=== PATIENT | female | born 1930 | race Caucasian/White ===

== ENCOUNTER 2019-03-11 10:53 | Emergency (ER) | payer MEDICARE, BC ==
--- OUTSIDE RECORDS SUMMARY | 2019-03-11 11:05 | XMS REPORT | Continuity of Care Document ---
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 Payers Date Identification Numbers Payment Provider Subscriber Effective: Policy Number: [id number] Medicare Amanda Hager 1995 PayID: [id number] [address] [place] [address] Effective: 2016 Policy Number: [facility] Amanda Hager [id number] PayID: [id number] [address] [address] [place] [address] Problems Active Problems Provider Date Localized, primary osteoarthritis Jonny Romero MD Onset: 03/10/2019 Knee pain Jonny Romero MD Onset: 03/07/2019 Family History Date Family Member(s) Observation Comments General Hypercholesterolemia General Hypertension General Diabetes Social History Type Date Description Comments Sex Unknown Tobacco Use Start: Unknown Patient has never smoked Smoking Status Reviewed: 03/07/19 Patient has never smoked Allergies, Adverse Reactions, Alerts Active Allergies Reaction Severity Comments Date Aleve Moderate 03/07/2019 Advil Moderate 03/07/2019 Sulfacetamide Moderate 03/07/2019 Bactrim Moderate 03/07/2019 Medications Active Medications SIG Qnty Indications Ordering Provider Date Duloxetine HCL on tab PO every Jonny Romero MD 03/09/[address] Mccarthy Amiodarone HCL 200 mg daily Unknown 200mg Tablets Furosemide 1 tab every Unknown 80mg Tablets Thursday, Thursday, Thursday Vital Signs Date Vital Result Comment 03/07/2019 10:34am Height 62 inches 5'2" Weight 126.00 lb Heart Rate 72 /min BP Systolic 110 mmHg BP Diastolic 68 mmHg BMI (Body Mass Index) 23.0 kg/m2 Plan of Treatment 03/07/2019 - Jonny Romero, MDM25.561 Pain in right kneeNew Xrays:Kneeright 4+ VWS , Ordered: 03/07/19Ne Therapy:Physical TherapyComments:Right knee pain for quite some time. She has a diagnosis of osteoarthritis. Xrays done 1 to 2 years ago, not available to review. Has cortisone injection twice > 1 year ago. Had viscosupplementationin Aug 2018 and it lasted 2 months. Has not done any physical therapy . Xrays of right knee today: moderate to severe osteoarthritis. Her right knee pain is likely secondary to right knee mild osteoarthritis flare . Natural History discussed with patient in detail. We discussed treatment options and alternatives including corticosteroid injection / viscosupplementation and PT . 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 Ice 15 min at a time, 3 to 4 times/day. - Activity: Staying active is important . Incorporate exercise .Pain free activities as tolerated. Avoid activity that worsen your pain . - Plan to start Physical therapy- Weight loss discussed( Diet + Exercise better than either alone)) Patient will follow up later this week for a corticosteroid injection. Patient indicates that all questions have been satisfactorily addressed and agrees to proceed accordingly.Patient understands and agree with plan. Patient indicates that all questions have been satisfactorily addressed. Patient understands and agrees with plan.M25.561 Pain in right kneeNew Xrays:Kneeright 4+ VWS, Ordered: 03/07/19Ne Therapy:Physical TherapyComments:Right knee pain for quite some time. She has a diagnosis of osteoarthritis. Xrays done 1 to 2 years ago, not available to review. Has cortisone injection twice > 1 year ago. Had viscosupplementationin Aug 2018 and it lasted 2 months. Has not done any physical therapy . Xrays of right knee today: moderate to severe osteoarthritis. Her right knee pain is likely secondary to right knee mild osteoarthritis flare . Natural History discussed with patient in detail. We discussed treatment options and alternatives including corticosteroid injection / viscosupplementation and PT . Plan :- Pain control: Tylenol as needed for [facility] pain control . Ice 15 min at a time, 3 to 4 times/day. - Activity: Staying active is important . Incorporate exercise .Pain free activities as tolerated. Avoid activity that worsen your pain . - Plan to start Physical therapy- Weight loss discussed( Diet + Exercise better than either alone)) Patient will follow up later this week for a corticosteroid injection. Patient indicates that all questions have been satisfactorily addressed and agrees to proceed accordingly.Patient understands and agree with plan. Patient indicates that all questions have been satisfactorily addressed. Patient understands and agrees with plan.
--- OUTSIDE RECORDS SUMMARY | 2019-03-11 11:05 | XMS REPORT | Continuity of Care Document ---
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 Vicky Santana MD, PHD Primary Care Physician Unavailable Payers Date Identification Numbers Payment Provider Subscriber Policy Number: [id number] Medicare Amanda Schaeferamado PayID: [id number] [address] [place] [address] Policy Number: [id number] [facility] Amanda Schaeferamado PayID: [id number] [address] [address] [place] [address] Problems Active Problems Provider Date Localized, primary osteoarthritis Vicky Santana MD, PHD Onset: 03/02/2019 Conductive hearing loss, bilateral Vicky Santana MD, PHD Onset: 03/02/2019 Atelectasis Vicky Santana MD, PHD Onset: 03/02/2019 Heart failure, unspecified Vicky Santana MD, PHD Onset: 03/02/2019 Polyneuropathy Vicky Satnana MD, PHD Onset: 03/02/2019 Chronic pain Vicky Santana MD, PHD Onset: 03/02/2019 Heart valve replacement Vicky Santana MD, PHD Onset: 03/02/2019 Social History Type Date Description Comments Sex Unknown Lives With Daughter Diet Patient follows no dietary restrictions ADL's/IADL's Independent with all IADL's ADL's/IADL's Independent with all ADL's Tobacco Use Start: Unknown Never Smoked Cigarettes Smoking Status Reviewed: 03/02/19 Never Smoked Cigarettes ETOH Use Denies alcohol use Tobacco Use Start: Unknown Patient denies history of smoking Recreational Drug Use Denies Drug Use Allergies, Adverse Reactions, Alerts Active Allergies Reaction Severity Comments Date Aleve 03/02/2019 Co-Advil 03/02/2019 Naproxen 03/02/2019 Sulfa Drugs 03/02/2019 Inactive Allergies NKDA 03/02/2019 Medications Active Medications SIG Qnty Indications Ordering Date Provider Aspirin 81 1 by mouth every day Unknown 81mg Tablets DR MENON Vitamin B6 1 tab by mouth Unknown 100mg Tablets Vitamin D-3 1 by mouth every day Unknown 1000Unit Capsules Cyanocobalamin 3000mcg (3ml) Unknown intramuscular 1000mcg/ML Solution injection monthly Vitamin C 1 by mouth every day Unknown 500mg Capsules Dulcolax Stool prn Unknown Softener 100mg Capsules Folic Acid 1 tabl by mouth Unknown 800mcg every day Tablets Calcium + D 1 tab in morning and Unknown at night [id number] Chewtabs Omeprazole 1 by mouth every day Unknown 20mg or as needed Capsules Latanoprost 1 drop each eye at Unknown 0.005% night Solution Metoprolol Succinate 1 by mouth every day 90tabs Esther, ER MD Vicky, 25mg Tablets ER 24HR PHD Atorvastatin Calcium 1 by mouth every day Unknown 10mg Tablets Ibandronate Sodium take one tablet Unknown every month in am 150mg Tablets with 8 oz glass of water on empty stomach. remain upright for at least 30 minutes Brimonidine Tartrate one drop left eye Unknown twice daily. 0.15% Solution Gabapentin 1 tab in A.M. and 1 Unknown 300mg tab hs Capsules Klor-Con M10 1 by mouth every day Unknown 10Meq Tablets ER Furosemide 1 by mouth every Unknown 80mg Tablets Thursday, Thursday, and Thursday Amiodarone HCL 1 by mouth every day Unknown 200mg Tablets Duloxetine HCL 1 by mouth every Unknown 30mg a.m. and hs Caps DR Mccarthy Vital Signs Date Vital Result Comment 03/02/2019 9:36am BP Systolic 132 mmHg BP Diastolic 82 mmHg Body Temperature 98.2 F Heart Rate 71 /min Respiratory Rate 18 /min Height 66 inches 5'6" Weight 176.00 lb BMI (Body Mass Index) 28.4 kg/m2 BSA (Body Surface Area) 1.89 m2 [place] body weight in kilograms 59 kg O2 % BldC Oximetry 94 % Plan of Treatment 03/02/2019 - Vicky Santana MD, PHDZ95.2 Presence of prosthetic heart valveComments:Has a pig zkqryC64.9 Heart failure, unspecifiedFollow up:Please do records release for hospital records from [facility]28.29 Other chronic painG62.9 Polyneuropathy, dhtndscmmmkF25.11 AtelectasisComments:Take deep breaths - remind hourly during the day to get fluid out of lungs. Look for Arnica oil or Arnicare cream or Arnica with MSM cream from [facility] - Topical anti -inflammatory as effective but saferthan motrin - use on chest scars and arthritis as needed up to 4 times a day.H90.0 Conductive hearing loss, bilateralReferral:[facility], OweweeypvzsK45.0 Bilateral primary osteoarthritis of kneeReferral:Jonny Romero MD, Surgery,OrthopedicFollow up: Need records from Dr. Martin from [facility].
--- NOTE | 2019-03-11 12:22 | UC ---
Lower Extremity/Ankle HPI - HPI Summary HPI Summary: 88 y/o female presents to the urgent care c/o c/o red area on bottom of her feet that daughters are concerned for infection. States has a podiatry consult on . - History of Current Complaint Chief Complaint: UCLowerExtremity Stated Complaint: BI LAT FOOT CONCERN Time Seen by Provider: 03/11/19 12:20 Onset/Duration: Gradual Onset, Lasting Weeks - 4 weeks Pain Intensity: 8 - Allergies/Home Medications Allergies/Adverse Reactions: Allergies Allergy/AdvReac Type Severity Reaction Status Date / Time No Known Allergies Allergy Verified 03/11/19 11:35 PMH/Surg Hx/FS Hx/Imm Hx Previously Healthy: Yes Endocrine History: Dyslipidemia Other Endocrine History: Osteoporosis Cardiovascular History: Cardiac Disease, Hypertension GI/ History: Gastroesophageal Reflux Other GI/ History: Constipation - Surgical History Surgical History: Yes Surgery Procedure, Year, and Place: bilateral mastectomy. valve replacement. esophageal dilatation. eye. foot - Social History Alcohol Use: None Substance Use Type: None Smoking Status (MU): Former Smoker When Did the Patient Quit Smoking/Using Tobacco: 40 years ago Physical Exam Vital Signs: Initial Vital Signs Temp 98.9 F 03/11/19 11:36 Pulse 72 03/11/19 11:36 Resp 18 03/11/19 11:36 BP 150/70 03/11/19 11:36 Pulse Ox 96 03/11/19 11:36 Lower Extremity Course/Dx - Differential Dx/Diagnosis Differential Diagnosis/HQI/PQRI: Arthritis, Contusion, Fracture (Closed), Osteomyelitis, Sprain, Strain, Tendonitis Provider Diagnosis: Cellulitis of left foot excluding toes, Osteoarthritis, Foot callus, Uncontrolled hypertension Discharge - Sign-Out/Discharge Documenting (check all that apply): Patient Departure - D/C home All imaging exams completed and their final reports reviewed: Yes - Discharge Plan Condition: Stable Disposition: HOME Prescriptions: Bacitracin OINTMENT* 1 applic TOPICAL BID #1 tube Cephalexin CAP* [Keflex CAP*] 500 mg PO QID #28 cap Patient Education Materials: Cellulitis (ED), Osteoarthritis (ED) Referrals: Vicky Santana MD [Primary Care Provider] - 3 Days Maynor Toro DPM [Doctor of Podiatric Medicine] - 3 Days Additional Instructions: 1-Please take full course of Keflex PO Antibiotic. Pleas apply bacitracin topical oint as directed. Alos soak you foot BID w/ Epson salt to soften foot callus. 2- If redness and swelling doubles in size despite taking antibiotic and fever develops please go to the ER immediately. 3-Avoid standing for long periods of time or flexing your foot, keep it elevated and keep wound clean and dry. 4-Please F/u with your [facility] appt next week. Or you can also f/u w/ [facility] DR Maynor Toro. 5- Please take Tylenol 500mg PO q6-8hrs prn for pain 6- Your BP is elevated today. please decrease salt in your diet, monitor BP and if it continues to be elevated please f/u with your PCP for further management. - Billing Disposition and Condition Condition: STABLE Disposition: Home
== END 2019-03-11 14:11 | disposition home or self-care (01) ==
LOC: UCCORT 10:53
DX: L03.116 Cellulitis of left lower limb (principal); M19.072 Primary osteoarthritis, left ankle and foot; L84 Corns and callosities; E78.5 Hyperlipidemia, unspecified; M81.0 Age-related osteoporosis without current pathological fracture; I11.9 Hypertensive heart disease without heart failure; K21.9 Gastro-esophageal reflux disease without esophagitis; K59.00 Constipation, unspecified; Z90.13 Acquired absence of bilateral breasts and nipples; Z95.2 Presence of prosthetic heart valve; Z87.891 Personal history of nicotine dependence
CPT/HCPCS: 99202; G0463